=== PATIENT | female | born 1955 | race Caucasian/White ===

== ENCOUNTER 2023-12-10 14:54 | Emergency (ER) | payer OTHER, MEDICAID ==
[~2023-12-10] VITALS: Ht 167.6 cm; Wt 69.3 kg
[2023-12-10] MEDS: HYDROcodone-ACET 10/325MG TAB PO ONE (15:33)
[2023-12-10 15:41] LABS: Basophils # (auto) 0.1 10 ^3/uL (0-0.2); Eosinophils # (auto) 0 10 ^3/uL (0-0.8); Mean Corpuscular Hgb Conc. 32.8 g/dL (32.0-36.0); Monocytes # (auto) 0.4 10 ^3/uL (0-1.3); White Blood Cell 11.7 10^3/uL (4.4-10.8)
[2023-12-10 15:42] LABS: Basophils % (auto) 0.6 % (0.0-2.0); Hemoglobin 12.1 g/dL (12.2-16.2); Lymphocytes % (auto) 8.5 % (10.0-50.0); Mean Corpuscular Hemoglobin 28.5 pg (28.0-32.0); Mean Corpuscular Volume 87.1 fL (80.0-100.0); Monocytes % (auto) 3.7 % (0.0-12.0); Neutrophils # (auto) 10.2 10 ^3/uL (1.6-8.6); Neutrophils % (auto) 87.2 % (37.0-80.0); Red Blood Cells 4.25 10^6/uL (4.0-5.20); Red Cell Distribution Width 14.1 % (11.8-14.3)
[2023-12-10 16:00] LABS: Alanine Aminotransferase 15 U/L (7-40); Albumin 4.9 g/dL (3.2-4.8); Alkaline Phosphatase 112 U/L (46-116); Anion Gap 8 (5-15); Aspartate Aminotransferase 16 U/L (13-40); BUN/Creatinine Ratio 26.7 (10.0-20.0); Bilirubin, Total 0.4 mg/dL (0.2-1.0); Blood Urea Nitrogen 16 mg/dL (9-23); Calcium 9.7 mg/dL (8.5-10.1); Carbon Dioxide 26 mmol/L (20-30); Chloride 104 mmol/L (98-107); Glucose 152 mg/dL (74-106); Potassium 4.8 mmol/L (3.5-5.1); Sodium 138 mmol/L (136-145); Total Protein 6.9 g/dL (5.7-8.2)
[2023-12-10] MEDS: IOHEXOL 300 MG/ML 100ML BOTTLE IJ ONE (17:02)
[2023-12-10] MEDS ORDERED: AMOX875T4 PO (18:18)
[2023-12-10] MEDS ORDERED: IBUP-1454 PO (18:18)
[2023-12-10] MEDS ORDERED: HYDR-4902 PO (18:18)
[2023-12-10 18:29] VITALS: BP 120/76; PULSE 78; RESP 18; O2SAT 97
== END 2023-12-10 18:37 | disposition home or self-care (01) ==
LOC: ER 14:54
DX: K04.7 Periapical abscess without sinus (principal)
CPT/HCPCS: 36415; 70487; 80053; 85025; 99285; Q9967

== ENCOUNTER 2024-07-14 20:40 | Emergency (ER) | payer BC, MEDICAID ==
[~2024-07-14] VITALS: Ht 167.6 cm; Wt 82.9 kg
[~2024-07-14 20:40] MED LIST: AMOX875T4 PO; HYDR-4902 PO; IBUP-1454 PO
[2024-07-15] MEDS: OXYCODONE W/ ACETAMINOPHEN 5/325MG TABLET PO ONE ×2 (00:27→04:36)
[2024-07-15 05:57] VITALS: BP 146/72; PULSE 79; RESP 18; O2SAT 94
[2024-07-15 06:20] LABS: Basophils # (auto) 0 10 ^3/uL (0-0.2); Basophils % (auto) 0.2 % (0.0-2.0); Eosinophils # (auto) 0 10 ^3/uL (0-0.8); Eosinophils % (auto) 0.3 % (0.0-7.0); Hematocrit 38.6 % (36.0-46.0); Hemoglobin 13.1 g/dL (12.2-16.2); Lymphocytes % (auto) 14.3 % (10.0-50.0); Mean Corpuscular Hemoglobin 29.7 pg (28.0-32.0); Mean Corpuscular Hgb Conc. 33.8 g/dL (32.0-36.0); Mean Corpuscular Volume 87.9 fL (80.0-100.0); Monocytes # (auto) 1.2 10 ^3/uL (0-1.3); Monocytes % (auto) 8.8 % (0.0-12.0); Neutrophils # (auto) 10.7 10 ^3/uL (1.6-8.6); Neutrophils % (auto) 76.4 % (37.0-80.0); Platelet Count (auto) 350 10^3/uL (140-450); Red Cell Distribution Width 14.8 % (11.8-14.3)
[2024-07-15] MEDS: SODIUM CHLORIDE 0.9% 1,000 ML IV ONE (06:34)
[2024-07-15 06:45] LABS: Alanine Aminotransferase 14 U/L (7-40); Albumin 4.9 g/dL (3.2-4.8); Alkaline Phosphatase 96 U/L (46-116); Anion Gap 9 (5-15); Aspartate Aminotransferase < 8 U/L (13-40); BUN/Creatinine Ratio 16.9 (10.0-20.0); Bilirubin, Total 0.5 mg/dL (0.2-1.0); Blood Urea Nitrogen 10 mg/dL (9-23); Calcium 9.5 mg/dL (8.7-10.4); Carbon Dioxide 22 mmol/L (20-31); Chloride 108 mmol/L (98-107); Glucose 157 mg/dL (74-106); Potassium 3.3 mmol/L (3.5-5.1); Sodium 139 mmol/L (136-145); Total Protein 7.4 g/dL (5.7-8.2)
[2024-07-15] MEDS ORDERED: MORPHINE SULFATE INJ 2 MG/ml SYRG IV PRN ×2 (06:45)
[2024-07-15] MEDS ORDERED: NITROGLYCERIN 0.4 MG SL TAB SL PRN (06:45)
[2024-07-15] MEDS ORDERED: DOCUSATE SOD 100 MG CAP PO PRN (06:45)
[2024-07-15] MEDS ORDERED: ACETAMINOPHEN 325 MG TAB PO PRN (06:45)
[2024-07-15] MEDS ORDERED: ONDANSETRON HCL 4 MG/2 ML VIAL IV PRN (06:45)
[2024-07-15] MEDS ORDERED: SODIUM CHLORIDE 0.9% 1,000 ML IV SCH (06:45)
[2024-07-15] MEDS ORDERED: HYDROcodone-ACET 5/325MG TAB PO PRN (06:45)
[2024-07-15] MEDS ORDERED: cefTRIAXone 1GM/50ML D5W 50 ML IV ONE (07:15)
[2024-07-15] MEDS ORDERED: ENOXAPARIN SOD 40 MG/0.4 ML SYRINGE SC SCH (10:00)
[2024-07-16] MEDS ORDERED: cefTRIAXone 1GM/50ML D5W 50 ML IV SCH (09:00)
== END 2024-07-15 07:54 | disposition home or self-care (01) ==
LOC: ER 20:40
DX: S22.41XA Multiple fractures of ribs, right side, initial encounter for closed fracture (principal); R55 Syncope and collapse; X58.XXXA Exposure to other specified factors, initial encounter; Y93.89 Activity, other specified; Y92.89 Other specified places as the place of occurrence of the external cause; Y99.8 Other external cause status
CPT/HCPCS: 36415; 70450; 71101; 71250; 72040; 72125; 73000; 80053; 82962; 84484; 85025; 93005; 96360; 99285; J7030

== ENCOUNTER 2025-02-24 19:26 | Emergency (ER) | payer MEDICARE, MEDICAID ==
[~2025-02-24] VITALS: Ht 167.6 cm; Wt 89.0 kg
[2025-02-24 19:57] LABS: Basophils # (auto) 0.1 10 ^3/uL (0-0.2); Basophils % (auto) 1.3 % (0.0-2.0); Eosinophils # (auto) 0.1 10 ^3/uL (0-0.8); Eosinophils % (auto) 0.6 % (0.0-7.0); Hematocrit 39.5 % (36.0-46.0); Hemoglobin 13.1 g/dL (12.2-16.2); Lymphocytes # (auto) 2.3 10 ^3/uL (0.4-5.4); Lymphocytes % (auto) 25.9 % (10.0-50.0); Mean Corpuscular Hgb Conc. 33.1 g/dL (32.0-36.0); Mean Corpuscular Volume 84.5 fL (80.0-100.0); Monocytes # (auto) 0.6 10 ^3/uL (0-1.3); Monocytes % (auto) 6.3 % (0.0-12.0); Neutrophils # (auto) 5.8 10 ^3/uL (1.6-8.6); Neutrophils % (auto) 65.9 % (37.0-80.0); Nucleated Red Blood Cells % 0.1 %; Platelet Count (auto) 425 10^3/uL (140-450); Red Blood Cells 4.67 10^6/uL (4.0-5.20); Red Cell Distribution Width 15.4 % (11.8-14.3); White Blood Cell 8.8 10^3/uL (4.4-10.8)
[2025-02-24 20:04] LABS: Potassium 3.6 mmol/L (3.5-5.1); Sodium 140 mmol/L (136-145)
[2025-02-24 20:05] LABS: Anion Gap 5 (5-15); Calcium 9.7 mg/dL (8.7-10.4); Carbon Dioxide 25 mmol/L (20-31)
[2025-02-24 20:10] LABS: BUN/Creatinine Ratio 12.7 (10.0-20.0)
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
[2025-02-24 20:32] LABS: Blood Alcohol < 3.0 mg/dL (<10); Blood Urea Nitrogen 8 mg/dL (9-23); Chloride 110 mmol/L (98-107); Glucose 131 mg/dL (74-106)
--- NOTE | 2025-02-24 21:24 | DVH ---
CLINICAL INDICATION: pain TECHNIQUE: Right knee 2-view x-ray 2 radiographic views of the right knee were obtained. Comparison: None FINDINGS/IMPRESSION: There is no evidence of acute fracture or dislocation. Narrowing of the lateral compartment of the right knee and patellofemoral joint is noted. Arthritic c hanges are noted of the lateral femoral condyle and bilateral tibial plateau there is a small calcifi cation in the lateral collateral ligament or in the lateral portion of the lateral compartment of the right knee. The alignment is anatomical. There is no radiopaque foreign body. HS:Y
[2025-02-24 21:29] LABS: Urine Bacteria FEW /hpf (None Seen); Urine Blood Negative /uL (Negative); Urine Clarity Clear (Clear); Urine Color Yellow (Yellow); Urine Mucus FEW (None Seen); Urine Protein, UAD Negative (Negative); Urine Squamous Epithelial Cell FEW /hpf (<5); Urine Urobilinogen Normal (Negative); Urine WBC 1 /HPF (0-5)
--- NOTE | 2025-02-24 21:29 | DVH ---
EXAM: CT HEAD WITHOUT CONTRAST INDICATION: pain TECHNIQUE: CT of the head without intravenous contrast. Radiation Dose Information: CT Dose: CTDI volume is 58.21 mGy. Dose-length product is 1030.68 mGy*cm The dose indicators for CT are the volume Computed Tomography (CT) Dose Index (CTDIvol) and the Dose Length Product (DLP), and are measured in units of mGy and mGy-cm, respectively. These indicators are not patient dose, but values generated from the CT scanner acquisition factors. The report includes radiation exposure data for exposures received during this examination. COMPARISON: CT HEAD WITHOUT CONTRAST on DOS: 07/15/24 FINDINGS: There is no evidence of acute intracranial hemorrhage, extra-axial collection, mass effect, midline s hift, herniation or hydrocephalus. The ventricles, sulci and cisterns are age appropriate. The pop-white differentiation is intact. Patchy periventricular and subcortical white matter hypoattenuation is nonspecific but may be related to small vessel ischemic disease. The visualized paranasal sinuses and mastoid air cells are clear. The surrounding soft tissues and osseous structures are unremarkable. IMPRESSION: 1. No acute intracranial hemorrhage. 2. No CT findings of territorial ischemia. 3. No paranasal sinus disease. HS:Y
[2025-02-24 21:39] LABS: Benzodiazephine Screen, Urine Pos (NEGATIVE)
[2025-02-24 21:40] LABS: Amphetamine Screen, Urine Neg (NEGATIVE); Barbiturate Scree,Urine Neg (NEGATIVE); Cannabinoid Screen, Urine Pos (NEGATIVE); Cocaine Screen, Urine Neg (NEGATIVE); Opiate Scree,Urine Neg (NEGATIVE); Phencyclidine Screen, Urine Neg (NEGATIVE)
[2025-02-24 22:00] VITALS: BP 112/75; PULSE 90; RESP 12; TEMP 98.6; O2SAT 95
[2025-02-24] MEDS: SODIUM CHLORIDE 0.9% 500 ML IVB ONE (22:00)
--- NOTE | 2025-02-25 07:15 | ECG ---
[facility] Test Date: 2025-02-24 Test Time: 19:26:06 Pat Name: LUCIANO RICH Department: ED Room: Gender: F Spinner Hand: : 1955 Requested By: FREEDOM DEUTSCH Order Number: [id number] Reading MD: Lonny Webb Measurements Intervals [place] Rate: 98 P: 58 RI: 184 QRS: 16 QRSD: 78 T: 61 QT: 343 QTc: 438 Interpretive Statements Sinus rhythm Anterior infarct, old Baseline wander in lead(s) V1,V2,V3 Electronically Signed On 03-01-2025 12:09:09 PDT by Lonny Webb Please click the below link to view image of tracing.
== END 2025-02-24 22:37 | disposition home or self-care (01) ==
LOC: ER 19:26 → EDBD 19:26 → ER 22:37
DX: S80.01XA Contusion of right knee, initial encounter (principal); S00.81XA Abrasion of other part of head, initial encounter; I10 Essential (primary) hypertension; E11.9 Type 2 diabetes mellitus without complications; E78.5 Hyperlipidemia, unspecified; R29.6 Repeated falls; F12.90 Cannabis use, unspecified, uncomplicated; Z90.49 Acquired absence of other specified parts of digestive tract; Z90.710 Acquired absence of both cervix and uterus; Z79.899 Other long term (current) drug therapy; W18.39XA Other fall on same level, initial encounter; Y93.89 Activity, other specified; Y92.89 Other specified places as the place of occurrence of the external cause; Y99.8 Other external cause status
CPT/HCPCS: 36415; 70450; 73560; 80048; 80307; 80320; 81001; 82947; 85025; 93005; 99285; J7040; 82962